=== PATIENT | female | born 1955 | race Caucasian/White ===

== ENCOUNTER 2020-05-21 13:05 | Outpatient (CLI) | payer MEDICARE, BC, SELFPAY ==
[2020-05-21] MEDS: iohexol 300 mg/mL 50 mL Btl PO (13:15)
--- NOTE | 2020-05-21 13:30 | CT_ITS ---
WS: [id number] CT scan of the abdomen and pelvis with Oral and IV contrast. Additional two-dimensional coronal and s agittal reconstruction was performed. 05/21/2020 Clinical Data: R10.9 - Unspecified abdominal pain Comparison: None. DLP: 1137.[address] scans at [facility] use at least one of these dose optimization techniques: automat ed exposure control; mA and/or kV adjustment per patient size (includes targeted exams where dose is matched to clinical indication); or iterative reconstruction. Findings: The lower lungs show no nodules, masses or effusions. The gallbladder, spleen, adrenal glands and pancreas are normal. There is fatty infiltration liver. T here are surgical clips adjacent to the posterior aspect of the right lobe of the liver. The kidneys show equal bilateral contrast excretion with no cyst or masses. No hydronephrosis or nichelle l calculi are seen. The abdominal aorta is normal in size with calcification in the wall. There is an umbilical hernia wh ich contains mostly fat but the opening measures 3.66 cm. No appendicitis or diverticulitis is seen. There is a large amount of fecal material in the colon and there are sigmoid diverticula. Oral contrast is in the small bowel and there is no bowel dilatation. No abscess, adenopathy, ascites, mass, obstruction or free air is seen. The bladder is unremarkable. The uterus is unremarkable. No inguinal hernia is seen. The bones of the lower thorax, lumbar spine, pelvis, and hips show osteoarthritis of the lower thorac ic and lumbar vertebral bodies along with degenerative disc disease at L5-S1.. CT/CT abdomen pelvis w con* [id number] Impression: 1. Negative for acute intra-abdominal or pelvic abnormalities. 2. Fatty infiltration of liver. 3. Umbilical hernia containing mostly fat.
[2020-05-21] MEDS: iohexol 300 mg/mL 100 mL Btl IV (15:35)
== END 2020-05-21 13:06 | disposition home or self-care (01) ==
LOC: RADWPI 13:08
PROVIDERS: Visit Provider Surgery
DX: R10.9 Unspecified abdominal pain (principal); K76.0 Fatty (change of) liver, not elsewhere classified; K42.9 Umbilical hernia without obstruction or gangrene
CPT/HCPCS: 74177; Q9967

== ENCOUNTER 2020-05-21 14:00 | Outpatient (CLI) | payer MEDICARE, BC, SELFPAY ==
[2020-05-21 15:15] LABS: Blood Urea Nitrogen 14 mg/dL (8-23); Glomerular Filtration Rate 123.8 mL/min (90-130)
== END 2020-05-21 14:01 | disposition home or self-care (01) ==
LOC: ONCMED 14:04
PROVIDERS: Surgery; Visit Provider Surgery
DX: K43.2 Incisional hernia without obstruction or gangrene (principal)
CPT/HCPCS: 36415; 82565; 84520